=== PATIENT | male | born 1990 ===

== ENCOUNTER 2020-09-17 09:52 | Emergency (ER) | payer OTHER ==
[~2020-09-17] VITALS: Ht 180.3 cm; Wt 84.1 kg
[2020-09-17 09:54] VITALS: BP 132/92
== END 2020-09-17 10:13 ==
LOC: ER 09:53
DX: Z04.1 Encounter for examination and observation following transport accident (principal); M25.511 Pain in right shoulder; R20.0 Anesthesia of skin; V87.7XXA Person injured in collision between other specified motor vehicles (traffic), initial encounter; Y93.89 Activity, other specified; Y92.89 Other specified places as the place of occurrence of the external cause; Y99.8 Other external cause status
CPT/HCPCS: 99283